=== PATIENT | male | born 1985 | race African-American/Black ===

== ENCOUNTER 2022-11-21 14:37 | Emergency (ER) | payer SELFPAY ==
[~2022-11-21] VITALS: Ht 180.3 cm; Wt 79.0 kg
[2022-11-21 14:55] VITALS: BP 138/93
== END 2022-11-21 20:31 | disposition left against medical advice (07) ==
LOC: ER 14:37
DX: R06.02 Shortness of breath (principal); Z53.21 Procedure and treatment not carried out due to patient leaving prior to being seen by health care provider
CPT/HCPCS: 99281